=== PATIENT | male | born 1980 | race Caucasian/White ===

== ENCOUNTER 2017-10-12 18:08 | Inpatient (IN) | payer OTHER ==
--- NOTE | 2017-10-12 18:56 | ED ---
Psych HPI - General Chief Complaint: Psychiatric Symptoms Stated Complaint: SUICIDAL Time Seen by Provider: 10/12/17 18:39 Source: patient, police, RN notes reviewed Mode of arrival: ambulatory - History of Present Illness Initial Comments: This is a 36-year-old male with a history of asthma and depression who apparently was found by police with a hose attached to his exhaust pipe right into his vehicle. Patient apparently had text a friend that he was doing this. Patient was brought in by police for evaluation under petition for depression and suicidal attempt. The patient does state that he's been feeling depressed and suicidal since his mother 2 years ago apparently the age of 16 he try to hurt himself also. He denies any drugs or alcohol recently he does have a history of asthma but no problems for about a year. No other modifying factors at this time he states her multiple factors why he feels like previous suicide. He did state that he believed all his pain would go away once he was . MD Complaint: suicidal ideation, feels depressed - Related Data Home Medications Medication Instructions Recorded Confirmed No Known Home Medications [No 10/12/17 10/12/17 Known Home Medications] Allergies Allergy/AdvReac Type Severity Reaction Status Date / Time No Known Allergies Allergy Verified 10/12/17 18:44 Review of Systems ROS Statement: Those systems with pertinent positive or pertinent negative responses have been documented in the HPI. ROS Other: All systems not noted in ROS Statement are negative. Past Medical History Past Medical History: Asthma History of Any Multi-Drug Resistant Organisms: None Reported Additional Past Surgical History / Comment(s): vasectomy Past Psychological History: Anxiety, Depression Smoking Status: Current every day smoker Past Alcohol Use History: Occasional Past Drug Use History: None Reported General Exam - General Exam Comments Initial Comments: This is a well-developed well-nourished awake alert oriented 3 male Limitations: no limitations General appearance: alert, anxious Head exam: Present: atraumatic, normocephalic, normal inspection Eye exam: Present: normal appearance, PERRL, EOMI. Absent: scleral icterus, conjunctival injection, periorbital swelling ENT exam: Present: normal exam, mucous membranes moist Neck exam: Present: normal inspection. Absent: tenderness, meningismus, lymphadenopathy Respiratory exam: Present: normal lung sounds bilaterally. Absent: respiratory distress, wheezes, rales, rhonchi, stridor Cardiovascular Exam: Present: regular rate, normal rhythm, normal heart sounds. Absent: systolic murmur, diastolic murmur, rubs, gallop, clicks GI/Abdominal exam: Present: soft, normal bowel sounds. Absent: distended, tenderness, guarding, rebound, rigid Extremities exam: Present: normal inspection, full ROM, normal capillary refill. Absent: tenderness, pedal edema, joint swelling, calf tenderness Back exam: Present: normal inspection Neurological exam: Present: alert, oriented X3, CN II-XII intact Psychiatric exam: Present: depressed, agitated, suicidal ideation Skin exam: Present: warm, dry, intact, normal color. Absent: rash Course Vital Signs 10/12/17 10/12/17 18:24 20:38 Temperature 98.6 F Pulse Rate 98 85 Respiratory 16 17 Rate Blood Pressure 131/77 117/65 O2 Sat by Pulse 95 96 Oximetry - Reevaluation(s) Reevaluation #1: 10/12/17 21:06 Evaluated by psych intake service and will be admitted for inpatient treatment Medical Decision Making - Medical Decision Making The patient will be admitted he was evaluated by psychiatric service and will be admitted for inpatient treatment Disposition Clinical Impression: Depression, Suicidal ideation, Attempted suicide Disposition: TRANSFER TO PSYCH HOSP/UNIT Condition: Stable Referrals: None,Stated [Primary Care Provider] - 1-2 days
[2017-10-12] MEDS ORDERED: MAGNESIUM HYDROXIDE 2,400 MG/10 ML CUP PO PRN (22:06)
[2017-10-12] MEDS ORDERED: ZIPRASIDONE 20 MG VIAL IM PRN (22:06)
[2017-10-12] MEDS ORDERED: MAG HYDROX/AL HYDROX/SIMETH 30 ML CUP PO PRN (22:06)
[2017-10-12] MEDS ORDERED: ACETAMINOPHEN TAB 325 MG TAB PO PRN (22:06)
[2017-10-12] MEDS: traZODone HCL 50 MG TAB PO SCH (23:03)
--- NOTE | 2017-10-13 | P.HPMEDMHU ---
History of Present Illness H&P Date: 10/13/17 Chief Complaint: MHU HPI The patient is a 36-year- old male with a history of asthma, depression, anxiety and insomnia who apparently was found by police with a hose attached to his exhaust pipe right into his vehicle with the windows rolled up. Patient apparently had text a friend that he was doing this. Patient was brought in by police for evaluation under petition for depression and suicidal attempt. The patient reports increasing stressors, reports the mother of his children has kept them away from him, he has been unable to communicate with him in the last 2 months, the final straw for him when his when he found out his girlfriend was lying to him. The patient does state that he's been feeling depressed and suicidal since his mother 2 years ago apparently the age of 16 he try to hurt himself also. He denies any drugs or alcohol recently he does have a history of asthma but no problems for about a year. No other modifying factors at this time he states her multiple factors why he feels like previous suicide. He did state that he believed all his pain would go away once he was . The patient has poor social support reports his family has disowned him. He denies any coughing or wheezing or shortness of breath, reports that his asthma has been under control for over a year and that he is compliant with his Advair Review of Systems All other 12 point review of systems negative except for HPI Past Medical History Past Medical History: Asthma History of Any Multi-Drug Resistant Organisms: None Reported Additional Past Surgical History / Comment(s): vasectomy Past Psychological History: Anxiety, Depression Smoking Status: Current every day smoker Past Alcohol Use History: Occasional Past Drug Use History: None Reported Medications and Allergies Home Medications Medication Instructions Recorded Confirmed Type No Known Home Medications [No 10/12/17 10/12/17 History Known Home Medications] Allergies Allergy/AdvReac Type Severity Reaction Status Date / Time No Known Allergies Allergy Verified 10/12/17 18:44 Physical Exam Vitals: Vital Signs Temp Pulse Pulse Resp BP BP Pulse Ox 10/12/17 22:19 97.5 F L 70 16 121/75 98 10/12/17 20:38 85 17 117/65 96 10/12/17 18:24 98.6 F 98 16 131/77 95 Intake and Output 06/10/2410/12/17 10/13/17 14:59 22:59 06:59 Other: Weight 76.657 kg Constitutional: No acute distress, conversant, pleasant Eyes: Anicteric sclerae, moist conjunctiva, no lid-lag, PERRLA ENMT: NC/AT,Oropharynx clear, no erythema, exudates Neck:Supple, FROM, no masses, or JVD, No carotid bruits; No thyromegaly Lungs: Clear to auscultation, Clear to percussion, Normal respiratory effort, no accessory muscle use Cardiovascular: Heart regular in rate and rhythm, No murmurs, gallops, or rubs no peripheral edema Abdominal: Soft Nontender, nom distended, no guarding, no rebound or rigidity, Normoactive bowel sounds No hepatomegaly, No splenomegaly, No palpable mass No abdominal wall hernia noted Skin: Normal temperature, tone, texture, turgor, No induration No subcutaneous nodules, No rash, lesions, No ulcers Extremities:No digital cyanosis No clubbing, Pedal pulses intact and symmetrical Radial pulses intact and symmetrical Normal gait and station, No calf tenderness Psychiatric: Alert and oriented to person, place and time, Appropriate affect Intact judgement Neuro: Muscles Strength 5/5 in all 4 extremities, Sensation to light touch grossly present throughout, Cranial nerves II-XII grossly intact. No focal sensory deficits Cranial Nerve Examination - Cranial Nerves Cranial Nerve II- Optic: Intact Cranial Nerve III- Oculomotor: Intact Cranial Nerve IV- Trochlear: Intact Cranial Nerve V- Trigeminal: Intact Cranial Nerve - Abducens: Intact Cranial Nerve VII- Facial: Intact Cranial Nerve VIII- Auditory: Intact Cranial Nerve IX- Glossopharyngeal: Intact Cranial Nerve X- Vagus: Intact Cranial Nerve XI- Accessory: Intact Cranial Nerve XII- Hypoglossal: Intact Assessment and Plan (1) Asthma Current Visit: Yes Status: Acute Code(s): J45.909 - UNSPECIFIED ASTHMA, UNCOMPLICATED SNOMED Code(s): 951567295 (2) Anxiety Current Visit: Yes Status: Acute Code(s): F41.9 - ANXIETY DISORDER, UNSPECIFIED SNOMED Code(s): 45310115 (3) Attempted suicide Current Visit: Yes Status: Acute Code(s): T14.91XA - SUICIDE ATTEMPT, INITIAL ENCOUNTER SNOMED Code(s): 32768190 (4) Depression Current Visit: Yes Status: Acute Code(s): F32.9 - MAJOR DEPRESSIVE DISORDER , SINGLE EPISODE, UNSPECIFIED SNOMED Code(s): 06441035 Plan: Patient isn't admitted to the mental health unit with depression and attempted suicide, will defer to the inpatient psychiatry team regarding ongoing CBT and psychotropic therapy. Medically the patient appears to be stable, he does have asthma but denies any symptomatology of exacerbation at this time. We'll continue his home regimen of albuterol when necessary and Advair daily. We'll plan to sign off pending the patient's labs. I appreciate the opportunity to be involved ongoing care of this patient, for further questions feel free to contact us on inpatient team
[2017-10-13] MEDS: ALBUTEROL INHALER 60 PUFF/8 GM INHALER INHALATION PRN ×2 (07:55→17:01)
[2017-10-13] MEDS: SYMBICORT 160-4.5 MCG INHALER INHALATION SCH ×2 (07:56→20:15)
[2017-10-13] MEDS: NICOTINE 14MG/24HR PATCH TRANSDERM SCH (09:39)
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
[2017-10-13] MEDS: CITALOPRAM HYDROBROMIDE 20 MG TAB PO SCH (11:40)
[2017-10-13 11:48] LABS: Basophils % (A) 0 %; Eosinophils # (A) 0.3 k/uL (0-0.7); Eosinophils % (A) 2 %; HCT 51.9 % (39.0-53.0); HGB 16.8 gm/dL (13.0-17.5); Lymphocytes # (A) 1.6 k/uL (1.0-4.8); Lymphocytes % (A) 11 %; MCH 31.5 pg (25.0-35.0); MCHC 32.4 g/dL (31.0-37.0); MCV 97.2 fL (80.0-100.0); Monocytes # (A) 0.5 k/uL (0-1.0); Monocytes % (A) 3 %; Neutrophils # (A) 12.4 k/uL (1.3-7.7); Neutrophils % (A) 83 %; Platelet Count 218 k/uL (150-450); RBC 5.34 m/uL (4.30-5.90); RDW 12.4 % (11.5-15.5); WBC 14.9 k/uL (3.8-10.6)
[2017-10-13 12:05] LABS: ALT 48 U/L (21-72); AST 31 U/L (17-59); Albumin 3.9 g/dL (3.5-5.0); Alkaline Phosphatase 53 U/L (38-126); Anion Gap 10 mmol/L; Blood Urea Nitrogen 16 mg/dL (9-20); Calcium 9.6 mg/dL (8.4-10.2); Carbon Dioxide 31 mmol/L (22-30); Chloride 105 mmol/L (98-107); Glucose 96 mg/dL (74-99); Potassium 5.5 mmol/L (3.5-5.1); Sodium 146 mmol/L (137-145); Total Bilirubin 0.8 mg/dL (0.2-1.3)
--- NOTE | 2017-10-13 17:47 | P.PN ---
Subjective Progress Note Date: 10/13/17 Principal diagnosis: Depression Patient is a 36 yo CM with a hx of Tobacco abuse, asthma, and depression who is currently in the MHU for suicide attempt. Patient seen and examined. We are reexamining patient due to laboratory abnormality. He was found to have a slightly elevated white blood cell count, elevated sodium, and elevated potassium levels. He states that he has been having difficulty with shortness of breath over the last 2-3 months. He also reports that he has been having some wheezing. He has a chronic cough productive of brown, green, or yellow sputum. He has not had any fevers but has had chills. 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 He has also been having intermittent nausea and vomiting for the last several months. He states he vomits in the morning and then feels nauseous throughout the day. He states it starts with feeling a choking type sensation involving a heart cough and then having vomiting. He was on an inhaled corticosteroid for his asthma but has not seen a PCP in 2 years and therefore has not been taking this medication. He continues to smoke and knows it is not a good idea. He is hoping to go home tomorrow. He is concerned about his worsening shortness of breath. He denies any diarrhea or constipation. He has not had any dysuria. We discussed that it is likely that he has slight dehydration. We will check a chest x-ray today with his cough. Plan is to repeat laboratory analysis in a.m. to ensure that his white blood cell count and potassium are decreasing. I' ve also asked him to increase his oral fluid intake overnight. Objective - Vital Signs Vital signs: Vital Signs Temp 98 F 10/13/17 06:38 Pulse 69 10/13/17 06:38 Resp 16 10/13/17 06:38 BP 116/58 10/13/17 06:38 Pulse Ox 98 10/12/17 22:19 Intake & Output 10/12/17 10/13/17 10/13/17 18:59 06:59 18:59 Weight 78.018 kg 76.657 kg - Exam General: non toxic, no distress, appears at stated age Derm: warm, dry, paul Head: atraumatic, normocephalic, symmetric Eyes: EOMI, no lid lag, anicteric sclera, sunken and eyes Mouth: no lip lesion, mucus membranes dry Cardiovascular: S1S2 reg, no murmur, positive posterior tibial pulse bilateral, Lungs: Rhonchi bilateral left greater than right, no accessory muscle use Abdominal: soft, nontender to palpation, no guarding, no appreciable organomegaly Ext: no gross muscle atrophy, no edema, no contractures Neuro: CN II-XI grossly intact, no focal neuro deficits Psych: Alert, oriented, appropriate affect - Labs CBC & Chem 7: 10/13/17 11:30 10/13/17 11:30 Labs: Abnormal Lab Results - Last 24 Hours (Table) 10/13/17 10/13/17 Range/Units 11:30 11:30 WBC 14.9 H (3.8-10.6) k/uL Neutrophils # 12.4 H (1.3-7.7) k/uL Sodium 146 H (137-145) mmol/L Potassium 5.5 H (3.5-5.1) mmol/L Carbon Dioxide 31 H (22-30) mmol/L Total Protein 6.0 L (6.3-8.2) g/dL Assessment and Plan Assessment: Leukocytosis -Chest CXR - likely due to dehydration - no dysuria, no abdominal pain - monitor for recurrent vomiting Hypernatremia and hyperkalemia, suspect due to dehydration - oral fluids - not on medications to account for hyperkalemia - repeat labs in AM Moderate persistent asthma -Initiate a LABA/ICS combination with Symbicort -When necessary albuterol -Please provide with inhalers on discharge -Will need PCP and have suggested the [facility] clinic as he currently does not have insurance. tobacco abuse - cessation - nicotine replacement Depression - your psych management Will check repeat labs in AM.
--- NOTE | 2017-10-13 18:13 | XR ---
EXAMINATION TYPE: XR chest 2V DATE OF EXAM: 10/13/2017 COMPARISON: 10/28/2008 HISTORY: Short of breath TECHNIQUE: Frontal and lateral views of the chest are obtained. FINDINGS: Heart and mediastinum are normal. Lungs are clear. Diaphragm is normal. Bony thorax appear s normal. IMPRESSION: Normal chest. No change.
[2017-10-13] MEDS: traZODone HCL 50 MG TAB PO SCH (20:59)
[2017-10-14 06:55] VITALS: BP 107/56; PULSE 67; RESP 14; TEMP 98.1
[2017-10-14] MEDS: SYMBICORT 160-4.5 MCG INHALER INHALATION SCH (08:55)
[2017-10-14] MEDS: ALBUTEROL INHALER 60 PUFF/8 GM INHALER INHALATION PRN (08:56)
[2017-10-14] MEDS: NICOTINE 14MG/24HR PATCH TRANSDERM SCH (08:58)
[2017-10-14] MEDS: CITALOPRAM HYDROBROMIDE 20 MG TAB PO SCH (08:59)
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
[2017-10-14 09:36] LABS: HCT 47.8 % (39.0-53.0); HGB 16.4 gm/dL (13.0-17.5); MCH 33.1 pg (25.0-35.0); MCHC 34.2 g/dL (31.0-37.0); MCV 96.8 fL (80.0-100.0); Mean Platelet Volume 6.6; Platelet Count 198 k/uL (150-450); RBC 4.94 m/uL (4.30-5.90); RDW 12.7 % (11.5-15.5); WBC 8.5 k/uL (3.8-10.6)
[2017-10-14 09:47] LABS: Anion Gap 9 mmol/L; Blood Urea Nitrogen 15 mg/dL (9-20); Calcium 9.2 mg/dL (8.4-10.2); Carbon Dioxide 30 mmol/L (22-30); Chloride 103 mmol/L (98-107); Glucose 60 mg/dL (74-99); Potassium 4.9 mmol/L (3.5-5.1); Sodium 142 mmol/L (137-145)
--- NOTE | 2017-10-14 11:11 | P.PN ---
Subjective Progress Note Date: 10/14/17 Principal diagnosis: Depression Patient is a 36 yo CM with a hx of Tobacco abuse, asthma, and depression who is currently in the MHU for suicide attempt. Found to have moderate persistent asthma. Patient seen and examined. Breathing slightly improved. No chest pain. Feeling well. Anxious to go home. Discussed the good RX program and provided Rx for Aero Ellipta inhaler and albuterol inhaler. We discussed the improtance of taking the medications correctly and how to use them. Also discussed the importance of tobacco cessation. Objective - Vital Signs Vital signs: Vital Signs Temp 98.1 F 10/14/17 06:54 Pulse 67 10/14/17 06:54 Resp 14 10/14/17 06:54 BP 107/56 10/14/17 06:54 Pulse Ox 98 10/12/17 22:19 - Exam General: non toxic, no distress, appears at stated age Derm: warm, dry, paul Head: atraumatic, normocephalic, symmetric Eyes: EOMI, no lid lag, anicteric sclera, sunken and eyes Mouth: no lip lesion, mucus membranes dry Cardiovascular: S1S2 reg, no murmur, positive posterior tibial pulse bilateral, Lungs: Rhonchi bilateral improving, no accessory muscle use Abdominal: soft, nontender to palpation, no guarding, no appreciable organomegaly Ext: no gross muscle atrophy, no edema, no contractures Neuro: CN II-XI grossly intact, no focal neuro deficits Psych: Alert, oriented, appropriate affect - Labs CBC & Chem 7: 10/14/17 09:19 10/14/17 09:19 Labs: Abnormal Lab Results - Last 24 Hours (Table) 10/13/17 10/13/17 10/14/17 Range/Units 11:30 11:30 09:19 WBC 14.9 H (3.8-10.6) k/uL Neutrophils # 12.4 H (1.3-7.7) k/uL Sodium 146 H (137-145) mmol/L Potassium 5.5 H (3.5-5.1) mmol/L Carbon Dioxide 31 H (22-30) mmol/L Glucose 60 L (74-99) mg/dL Total Protein 6.0 L (6.3-8.2) g/dL Assessment and Plan Assessment: Moderate persistent asthma -Rx for airduo -Rx for prn albuterol -Will need PCP and have suggested [facility] as he currently does not have insurance and placed on discharge tab tobacco abuse - cessation - nicotine replacement Depression - your psych management Leukocytosis, resolved Hypernatremia and hyperkalemia, resolved
== END 2017-10-14 12:24 | disposition home or self-care (01) | DRG 881 ==
LOC: EC 18:08 → 3MHU 21:41
PROVIDERS: ADMIT Psychiatry & Neurology Psychiatry; ATTEND Psychiatry & Neurology Psychiatry
DX: F32.9 Major depressive disorder, single episode, unspecified (principal); E87.0 Hyperosmolality and hypernatremia; D72.829 Elevated white blood cell count, unspecified; E86.0 Dehydration; E87.5 Hyperkalemia; F12.90 Cannabis use, unspecified, uncomplicated; F17.200 Nicotine dependence, unspecified, uncomplicated; F41.9 Anxiety disorder, unspecified; F60.2 Antisocial personality disorder; J45.40 Moderate persistent asthma, uncomplicated; T58.02XA Toxic effect of carbon monoxide from motor vehicle exhaust, intentional self-harm, initial encounter; Y92.810 Car as the place of occurrence of the external cause; Z62.810 Personal history of physical and sexual abuse in childhood; Z79.899 Other long term (current) drug therapy; Z91.410 Personal history of adult physical and sexual abuse; Z81.1 Family history of alcohol abuse and dependence; Z71.6 Tobacco abuse counseling
CPT/HCPCS: 71046; 80048; 80053; 82075; 84443; 85025; 85027; 94640; 99285

== ENCOUNTER 2018-07-14 15:17 | Emergency (ER) | payer BC ==
[2018-07-14 15:38] VITALS: RESP 18
[2018-07-14] MEDS ORDERED: SODIUM CHLORIDE 0.9% 1,000 ML IV STA (16:07)
[2018-07-14] MEDS ORDERED: KETOROLAC 30 MG/ML 1 ML VIAL IVP STA (16:07)
[2018-07-14] MEDS ORDERED: SODIUM CHLORIDE 0.9% 500 ML 500 ML IV STA (16:07)
--- NOTE | 2018-07-14 16:26 | ED ---
Abdominal Pain HPI - General Chief Complaint: Abdominal Pain Stated Complaint: Lower abd and back pain Time Seen by Provider: 07/14/18 15:47 Source: patient, RN notes reviewed Mode of arrival: ambulatory Limitations: no limitations - History of Present Illness Initial Comments: 37-year-old male presents emergency Department with chief complaint of right flank pain. Patient states this started yesterday has worsened today. Patient states he believes is a kidney stone. Patient states his family history no personal history. Patient denies any dysuria or hematuria. Patient admits slight nausea no vomiting no diarrhea no constipation. Patient states pain is worse with movement. Denies any trauma. Has no complaints of chest pain or shortness of breath. Patient offers no other complaints - Related Data Home Medications Medication Instructions Recorded Confirmed Fluticasone/Salmeterol 1 puff INHALATION RT-BID 07/14/18 07/14/18 [Fluticasone-Salmeterol 113-14] Previous Rx's Medication Instructions Recorded Albuterol Inhaler [Ventolin Hfa 1 - 2 puff INHALATION RT-Q6H PRN 10/14/17 Inhaler] #1 inhaler Allergies Allergy/AdvReac Type Severity Reaction Status Date / Time No Known Allergies Allergy Verified 07/14/18 15:58 Review of Systems ROS Statement: Those systems with pertinent positive or pertinent negative responses have been documented in the HPI. ROS Other: All systems not noted in ROS Statement are negative. Past Medical History Past Medical History: Asthma History of Any Multi-Drug Resistant Organisms: None Reported Past Surgical History: No Surgical Hx Reported Additional Past Surgical History / Comment(s): vasectomy Past Psychological History: Anxiety, Depression Smoking Status: Current every day smoker Past Alcohol Use History: Occasional Past Drug Use History: Marijuana General Exam Limitations: no limitations General appearance: alert, in no apparent distress Head exam: Present: atraumatic, normocephalic, normal inspection Neck exam: Present: normal inspection. Absent: tenderness, meningismus, lym phadenopathy Respiratory exam: Present: normal lung sounds bilaterally. Absent: respiratory distress, wheezes, rales, rhonchi, stridor Cardiovascular Exam: Present: regular rate, normal rhythm, normal heart sounds. Absent: systolic murmur, diastolic murmur, rubs, gallop, clicks GI/Abdominal exam: Present: soft, tenderness (Mild right-sided), normal bowel sounds. Absent: distended, guarding, rebound, rigid Back exam: Absent: CVA tenderness (R), CVA tenderness (L) Skin exam: Present: warm, dry, intact, normal color. Absent: rash Course Vital Signs 07/14/18 15:36 Temperature 98.5 F Pulse Rate 76 Respiratory 18 Rate Blood Pressure 122/63 O2 Sat by Pulse 99 Oximetry Medical Decision Making - Medical Decision Making 37-year-old male presented emergency department for abdominal pain. Patient has normal labs, x-ray shows constipation pattern. Patient urinalysis unremarkable. Patient be discharged return parameters were discussed. - Lab Data Result diagrams: 07/14/18 16:23 07/14/18 16:23 Lab Results 07/14/18 07/14/18 07/14/18 Range/Units 16:23 16:23 16:51 WBC 6.8 (3.8-10.6) k/uL RBC 4.74 (4.30-5.90) m/uL Hgb 15.6 (13.0-17.5) gm/dL Hct 46.6 (39.0-53.0) % MCV 98.3 (80.0-100.0) fL MCH 32.9 (25.0-35.0) pg MCHC 33.5 (31.0-37.0) g/dL RDW 12.5 (11.5-15.5) % Plt Count 221 (150-450) k/uL Neutrophils % 65 % Lymphocytes % 24 % Monocytes % 5 % Eosinophils % 4 % Basophils % 1 % Neutrophils # 4.4 (1.3-7.7) k/uL Lymphocytes # 1.6 (1.0-4.8) k/uL Monocytes # 0.4 (0-1.0) k/uL Eosinophils # 0.3 (0-0.7) k/uL Basophils # 0.0 (0-0.2) k/uL Sodium 139 (137-145) mmol/L Potassium 4.8 (3.5-5.1) mmol/L Chloride 107 (98-107) mmol/L Carbon Dioxide 27 (22-30) mmol/L Anion Gap 5 mmol/L BUN 15 (9-20) mg/dL Creatinine 0.87 (0.66-1.25) mg/dL Est GFR (CKD-EPI)AfAm >90 (>60 ml/min/1.73 sqM) Est GFR (CKD-EPI)NonAf >90 (>60 ml/min/1.73 sqM) Glucose 95 (74-99) mg/dL Calcium 9.2 (8.4-10.2) mg/dL Total Bilirubin 0.7 (0.2-1.3) mg/dL AST 28 (17-59) U/L ALT 33 (21-72) U/L Alkaline Phosphatase 65 (38-126) U/L Total Protein 6.9 (6.3-8.2) g/dL Albumin 4.3 (3.5-5.0) g/dL Amylase 31 (30-110) U/L Lipase 41 (23-300) U/L Urine Color Yellow Urine Appearance Clear (Clear) Urine pH 5.5 (5.0-8.0) Ur Specific Gracey 1.015 (1.001-1.035) Urine Protein Negative (Negative) Urine Glucose (UA) Negative (Negative) Urine Ketones Negative (Negative) Urine Blood Negative (Negative) Urine Nitrite Negative (Negative) Urine Bilirubin Negative (Negative) Urine Urobilinogen <2.0 (<2.0) mg/dL Ur Leukocyte Esterase Negative (Negative) Disposition Clinical Impression: Abdominal pain, Constipation Disposition: HOME SELF-CARE Condition: Stable Instructions (If sedation given, give patient instructions): Abdominal Pain (ED) Additional Instructions: Please return to the Emergency Department if symptoms worsen or any other concerns. Is patient prescribed a controlled substance at d/c from ED?: No Referrals: None,Stated [Primary Care Provider] - 1-2 days Time of Disposition: 17:12
[2018-07-14 16:36] LABS: Basophils % (A) 1 %; Eosinophils # (A) 0.3 k/uL (0-0.7); Eosinophils % (A) 4 %; HCT 46.6 % (39.0-53.0); HGB 15.6 gm/dL (13.0-17.5); Lymphocytes # (A) 1.6 k/uL (1.0-4.8); Lymphocytes % (A) 24 %; MCH 32.9 pg (25.0-35.0); MCHC 33.5 g/dL (31.0-37.0); MCV 98.3 fL (80.0-100.0); Mean Platelet Volume 7.2; Monocytes # (A) 0.4 k/uL (0-1.0); Monocytes % (A) 5 %; Neutrophils # (A) 4.4 k/uL (1.3-7.7); Neutrophils % (A) 65 %; Platelet Count 221 k/uL (150-450); RBC 4.74 m/uL (4.30-5.90); RDW 12.5 % (11.5-15.5); WBC 6.8 k/uL (3.8-10.6)
[2018-07-14 16:44] LABS: ALT 33 U/L (21-72); AST 28 U/L (17-59); Albumin 4.3 g/dL (3.5-5.0); Alkaline Phosphatase 65 U/L (38-126); Amylase 31 U/L (30-110); Anion Gap 5 mmol/L; Blood Urea Nitrogen 15 mg/dL (9-20); Calcium 9.2 mg/dL (8.4-10.2); Carbon Dioxide 27 mmol/L (22-30); Chloride 107 mmol/L (98-107); Glucose 95 mg/dL (74-99); Lipase 41 U/L (23-300); Potassium 4.8 mmol/L (3.5-5.1); Sodium 139 mmol/L (137-145); Total Bilirubin 0.7 mg/dL (0.2-1.3); Total Protein 6.9 g/dL (6.3-8.2)
--- NOTE | 2018-07-14 16:45 | XR ---
EXAMINATION TYPE: XR KUB - 2 upright views DATE OF EXAM: 07/14/2018 COMPARISON: NONE HISTORY: Right lower quadrant pain TECHNIQUE: 2 upright views FINDINGS: IMPRESSION:
[2018-07-14 16:59] LABS: Appearance,Urine Clear (Clear); Bilirubin,Urine Negative (Negative); Blood,Urine Negative (Negative); Color,Urine Yellow; Glucose,Urine (UA) Negative (Negative); Ketones,Urine Negative (Negative); Leukocyte Esterase,Urine Negative (Negative); Nitrite,Urine Negative (Negative); PH, Urine 5.5 (5.0-8.0); Protein,Urine Negative (Negative); Specific Gravity,Urine 1.015 (1.001-1.035); Urobilinogen,Urine <2.0 mg/dL (<2.0)
[2018-07-14 18:54] VITALS: BP 124/87; PULSE 87; TEMP 97.4
== END 2018-07-14 18:54 | disposition home or self-care (01) ==
LOC: EC 15:17
DX: K59.00 Constipation, unspecified (principal); M54.5 Low back pain; J45.909 Unspecified asthma, uncomplicated; F17.200 Nicotine dependence, unspecified, uncomplicated; Z79.51 Long term (current) use of inhaled steroids
CPT/HCPCS: 36415; 80053; 82150; 83690; 85025; 81003; 74018; 99284; 96374; 96361 ×2; J1885

== ENCOUNTER 2018-10-26 17:14 | Emergency (ER) | payer BC ==
[2018-10-26 17:50] LABS: Amphetamine Screen,Urine Not Detected (NotDetected); Barbiturate Screen,Urine Not Detected (NotDetected); Benzodiazepines Screen,Urine Not Detected (NotDetected); Cocaine Screen,Urine Not Detected (NotDetected); Methadone Screen, Urine Not Detected (NotDetected); Opiate Screen,Urine Not Detected (NotDetected); Oxycodone Screen, Urine Not Detected (NotDetected); Phencyclidine Screen,Urine Not Detected (NotDetected); Tricyclic Antidepressant,Urine Not Detected (NotDetected); Urn Cannabinoid Scrn Detected (NotDetected)
[2018-10-26] MEDS ORDERED: ZIPRASIDONE 20 MG VIAL IM PRN (18:35)
[2018-10-26] MEDS ORDERED: LORazepam 2 MG/ML INJ IM PRN (18:35)
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
[2018-10-27] MEDS ORDERED: ONDANSETRON 4 MG/2 ML VIAL IM STA (05:45)
[2018-10-27] MEDS ORDERED: ONDANSETRON ODT 4 MG TAB PO STA (05:51)
[2018-10-27 07:04] VITALS: BP 106/88; PULSE 86; RESP 18; TEMP 97.5
== END 2018-10-27 07:19 | disposition home or self-care (01) ==
LOC: EC 17:14
DX: R45.851 Suicidal ideations (principal); F10.129 Alcohol abuse with intoxication, unspecified; J45.909 Unspecified asthma, uncomplicated; F32.9 Major depressive disorder, single episode, unspecified; F41.9 Anxiety disorder, unspecified; F17.200 Nicotine dependence, unspecified, uncomplicated; Z79.51 Long term (current) use of inhaled steroids; Z79.899 Other long term (current) drug therapy; Z53.8 Procedure and treatment not carried out for other reasons
CPT/HCPCS: 82075; 36415; 80306; 80320; 99285; 96372 ×2; J2060; J3486

== ENCOUNTER 2019-02-24 06:03 | Emergency (ER) | payer BC, OTHER ==
[2019-02-24] MEDS ORDERED: IPRATROPIUM-ALBUTEROL 3 ML NEB INHALATION STA (06:29)
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
[2019-02-24 06:50] VITALS: RESP 18
[2019-02-24] MEDS ORDERED: ACET/COD 300 MG/30 MG STARTER PACK 6 TAB BTL PO STA (07:31)
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
[2019-02-24 07:44] VITALS: BP 119/72; PULSE 82; TEMP 97.9
== END 2019-02-24 07:42 | disposition home or self-care (01) ==
LOC: EC 06:03
DX: S20.212A Contusion of left front wall of thorax, initial encounter (principal); J45.909 Unspecified asthma, uncomplicated; Z71.6 Tobacco abuse counseling; F17.200 Nicotine dependence, unspecified, uncomplicated; Y09 Assault by unspecified means; Y92.89 Other specified places as the place of occurrence of the external cause
CPT/HCPCS: 94640; 99284; 99406

== ENCOUNTER 2019-07-17 22:27 | Emergency (ER) | payer OTHER ==
[2019-07-17 22:54] VITALS: BP 108/68; PULSE 64; RESP 20; TEMP 98.1
--- NOTE | 2019-07-17 23:54 | ED ---
General Adult HPI - General Chief complaint: ENT Stated complaint: Ear Pain Time Seen by Provider: 07/17/19 23:34 Source: patient, RN notes reviewed Mode of arrival: ambulatory Limitations: no limitations - History of Present Illness Initial comments: 38-year-old male presents to the emergency department for a chief complaint of right earlobe abnormality. Patient states this has been present for 3 years. States that in the past 6 months has become more painful. Patient denies any redness of the area. Denies any drainage. States the reason he came today was because his told him to. States he has never followed up with his primary care provider for this.Patient has no other complaints at this time including shortness of breath, chest pain, abdominal pain, nausea or vomiting, headache, or visual changes. - Related Data Previous Rx's Medication Instructions Recorded Azithromycin [Zithromax Z-pack] 0 mg PO DIRECTED #1 pack 02/24/19 predniSONE 50 mg PO DAILY #5 tab 02/24/19 Allergies Allergy/AdvReac Type Severity Reaction Status Date / Time No Known Allergies Allergy Verified 07/17/19 22:54 Review of Systems ROS Statement: Those systems with pertinent positive or pertinent negative responses have been documented in the HPI. ROS Other: All systems not noted in ROS Statement are negative. Past Medical History Past Medical History: Asthma History of Any Multi-Drug Resistant Organisms: None Reported Past Surgical History: No Surgical Hx Reported Additional Past Surgical History / Comment(s): vasectomy Past Psychological History: Anxiety, Depression Smoking Status: Current every day smoker Past Alcohol Use History: Rare Past Drug Use History: Marijuana General Exam Limitations: no limitations General appearance: alert, in no apparent distress Head exam: Present: atraumatic, normocephalic, normal inspection Eye exam: Present: normal appearance, PERRL, EOMI. Absent: scleral icterus, conjunctival injection, periorbital swelling ENT exam: Present: normal exam, normal oropharynx, mucous membranes moist. Abse nt: normal external ear exam (Patient has a 1 cm x 1 cm mobile cystic structure in the right earlobe) Neck exam: Present: normal inspection, full ROM. Absent: tenderness, men ingismus, lymphadenopathy Respiratory exam: Present: normal lung sounds bilaterally. Absent: respiratory distress, wheezes, rales, rhonchi, stridor Cardiovascular Exam: Present: regular rate, normal rhythm, normal heart sounds. Absent: systolic murmur, diastolic murmur, rubs, gallop, clicks Course Vital Signs 07/17/19 22:51 Temperature 98.1 F Pulse Rate 64 Respiratory 20 Rate Blood Pressure 108/68 O2 Sat by Pulse 98 Oximetry Medical Decision Making - Medical Decision Making Discussed with patient that at this time it does not appear to be an abscess. There is no erythema or purulent drainage. This has been here for 3 years he likely needs to see dermatology or ENT for this removal. Discussed that I'm not able to tell me exactly what this is at this time and that he needs to follow up. He will return to the emergency department with any worsening symptoms. Disposition Clinical Impression: Cyst Disposition: HOME SELF-CARE Condition: Good Instructions (If sedation given, give patient instructions): Cyst (ED) Additional Instructions: Please follow up with dermatology or ENT in 1-2 days. Return to the emergency department if you have any worsening symptoms. Is patient prescribed a controlled substance at d/c from ED?: No Referrals: Sharif Joyner MD [STAFF PHYSICIAN] - 1-2 days Nader De León MD [STAFF PHYSICIAN] - 1-2 days Time of Disposition: 23:53
== END 2019-07-18 00:16 | disposition home or self-care (01) ==
LOC: EC 22:27
DX: L72.9 Follicular cyst of the skin and subcutaneous tissue, unspecified (principal); F17.200 Nicotine dependence, unspecified, uncomplicated
CPT/HCPCS: 99282

== ENCOUNTER → 2019-11-01 | Outpatient (CLI) | payer OTHER ==
--- NOTE | 2019-11-01 12:44 | US ---
EXAMINATION TYPE: US scrotum with doppler. Grayscale and color Doppler Duplex imaging performed of t he scrotum. DATE OF EXAM: 11/01/2019 COMPARISON: NONE CLINICAL HISTORY: N50.9 LESION OF SCROTUM. Lump on the right EXAM MEASUREMENTS: TESTICLES: Right Testicle: 4.1 x 2.2 x 2.9 cm Left Testicle: 4.5 x 2.3 x 3.0 cm EPIDIDYMIS HEAD: Right Epididymis: 1.1 x .6 x .8 cm Left Epididymis: 1.6 x 1.4 x 1.3 cm. A 0.8 x 0.6 cm left epididymal cyst is present. Doppler performed to assess for testicular vascularity; good bilateral color flow and waveforms are s een. There is no evidence of testicular torsion. Presence of hydroceles: No Presence of varicoceles: No IMPRESSION: 1. Left epididymal cyst. 2. No suspicious right testicular abnormality.
== END | disposition home or self-care (01) ==
LOC: RADUSWWP 08:15
PROVIDERS: ATTEND Family Medicine
DX: N50.3 Cyst of epididymis (principal)
CPT/HCPCS: 76870; 93975

== ENCOUNTER → 2019-11-13 | Outpatient (CLI) | payer OTHER | END | disposition home or self-care (01) | LOC: CPPFTMAIN 10:24 | PROVIDERS: ATTEND Family Medicine | DX: J45.20 Mild intermittent asthma, uncomplicated (principal); Z72.0 Tobacco use | CPT/HCPCS: 94060; 94726; 94729 ==